=== PATIENT | female | born 1985 ===

== ENCOUNTER 2017-09-04 09:51 | Inpatient (IN) | payer MEDICAID ==
[2017-09-04 10:44] VITALS: BMI 34.8
[2017-09-04] MEDS: Lactated Ringer's 1,000 ML IV SCH ×2 (11:00→12:00)
[2017-09-04] MEDS ORDERED: Lactated Ringer's 1,000 ML IV SCH ×3 (11:15→22:57)
[2017-09-04 11:49] LABS: HEMOGLOBIN 11.4 g/dL (12.0-16.0); MEAN CELL VOLUME 84.3 fl (81.0-99.0); MEAN CORPUSCULAR HGB CONC 33.2 g/dL (33.0-37.0); RBC 4.06 Mil/uL (3.80-5.20); RED CELL DISTRIBUTION WIDTH 18.7 % (11.5-14.5); WHITE BLOOD COUNT 8.2 K/uL (4.8-10.8)
[2017-09-04 11:52] LABS: SQUAMOUS EPITHIAL 3 /hpf (0-5); URINE BACTERIA RARE (<OCC); URINE BILIRUBIN NEGATIVE (NEGATIVE); URINE BLOOD NEGATIVE (NEGATIVE); URINE CALCIUM OXALATE CRYSTALS MOD /hpf (<OCC); URINE CLARITY CLOUDY (Clear); URINE COLOR YELLOW (YELLOW); URINE GLUCOSE (UA) NEG (Normal); URINE LEUKOCYTE ESTERASE NEG Leu/uL (Negative); URINE PROTEIN NEGATIVE (NEGATIVE); URINE UROBILINOGEN 0.2-1.0 mg/dL (0.2-1.0)
[2017-09-04] MEDS ORDERED: SODIUM CHLORIDE 0.9% IVPB ONE (14:38)
[2017-09-04] MEDS ORDERED: CEFOXITIN IVPB ONE (14:38)
[2017-09-04] MEDS ORDERED: Morphine 5 mg/10 ml preservative-free Inj(Duramorph) ONE (16:05)
--- NOTE | 2017-09-04 17:18 | OBADHP ---
Datetime: 09/04/2017 16:54 Admit Comment, IP Provider: 42-year-old 002 at 37 weeks and 2 days gestational age presents to the ED complaining of contractions. Patient denies any vaginal bleeding or leakage of fluids. Hanh t reports good movement. Patient reports that contractions have been increasing in intensity an d frequency. Patient with a history of with last delivery. Current and breech pre sentation. Past medical history none Past surgical history 1 Medication vitamins No known drug allergies Obstetrical history full-term vaginal delivery 1, full-term 1 Social history no tobacco, no drugs, no alcohol Physical exam: Deferred physical exam findings Assessment: 4 at 37 weeks and 2 days gestational age with prior section and breech presentation. Lily duncan was observed at the ED for approximately 2-3 hours. After IVFhydration and observation, contractio ns have increased in frequency and intensity and cervix has become more dilated and effaced. Plan: I recommend patient to have delivery today due to early labor. Discussed with patient risks, benef its, alternatives of surgery and patient consented for repeat . Patient questions answered. Patient consented for procedure Pelvic Type - PN: Adequate Extremities - PN: Normal Abdomen - PN: Normal Back - PN: Normal Breast - PN: Normal Lungs - PN: Normal Heart - PN: Normal Thyroid - PN: Normal Neurologic - PN: Normal HEENT - PN: Normal General - PN: Normal FHR - Baseline A Provider: 120s Membranes, Provider: Intact Contraction Comments Provider: q2-5min Pool Provider: Negative IP Hx Assessment: The History has been Reviewed and is Current Vital Signs Provider: Reviewed; Within Normal Limits IP Chief Complaint: Uterine contractions NICHD Variability Prov Fetus A: Moderate 6-25bpm NICHD Accel Fetus A IP Provider: [id number] FHR Category Provider Fetus A: Category I NICHD Decel Fetus A IP Provider: None Dilatation, Provider: 2-3 Effacement, Provider: 50 Station, Provider: -3 Genitourinary Exam: Normal DTRs - PN: Normal EGA AdmitDate IP: 37.2 IP Adm Impression: Active labor; Intact Membranes IP Admit Plan: Admit to unit; Initiate Section protocol
[2017-09-04] MEDS ORDERED: Oxytocin 30 units/LR 500ML 30 U/500 ML BAG IV ONE (17:20)
[2017-09-04] MEDS ORDERED: Oxycodone/Acetaminophen 5/325 mg Tab PO PRN (19:53)
[2017-09-04] MEDS ORDERED: DiphenhydrAMINE 50 mg/ml Inj IVP PRN ×2 (20:04→22:57)
[2017-09-04] MEDS ORDERED: Simethicone 80 mg Chewtab PO SCH (22:00)
[2017-09-05] MEDS: Simethicone 80 mg Chewtab PO SCH ×4 (04:00→22:19)
[2017-09-05] MEDS: Oxycodone/Acetaminophen 5/325 mg Tab PO PRN ×2 (07:30→14:32)
[2017-09-05 07:38] LABS: HEMOGLOBIN 11.2 g/dL (12.0-16.0); MEAN CELL VOLUME 84.8 fl (81.0-99.0); MEAN CORPUSCULAR HEMOGLOBIN 27.6 pg (27.0-31.0); MEAN CORPUSCULAR HGB CONC 32.5 g/dL (33.0-37.0); RBC 4.04 Mil/uL (3.80-5.20); RED CELL DISTRIBUTION WIDTH 18.3 % (11.5-14.5); WHITE BLOOD COUNT 12.5 K/uL (4.8-10.8)
--- NOTE | 2017-09-05 08:26 | OBDS ---
DELIVERY PERSONNEL Nurse Agronomy Research Manager Certified: kris Delivery Doctor: Kelly Lazo MD Scrub Nurse: Verónica Batista OBT Senior Report Developer: Dianna Valadez RN/Zakia [place] Anesthesiologist: Traffic Routing Engineer: kris Resident: MATERNAL INFORMATION Delivery Anesthesia: Spinal Medications in Delivery: Pitocin 30 units in 500 cc LR Placenta Cultured: No Maternal Complications: None Provider Comments: Repeat low flap transverse section. Patient delivered viable infant with Apgars of 8 and 9 at one and 5 minutes respectively. Infant in mel breech presentation Normal uterus, normal tubes and ovaries bilaterally. Estimated blood loss 800 mL Fluids 1200 mL lactated Ringer's Urine output 7 50 mL of clear urine No complications LABOR SUMMARY EDC: 09/23/2017 00:00 No. Babies in Womb: 1 Attempted: No Labor Anesthesia: None LABOR INFORMATION Reason for Induction: Not Applicable Onset of Labor: 09/04/2017 10:00 Oxytocin: N/A Group B Beta Strep: Negative Antibiotics # of Doses: 1-pre op Antibiotics Time of Last Dose: 181 Steroids Given: None Reason Steroids Not Administered: Not Applicable MEMBRANES Membranes Rupture Method: Spontaneous Rupture of Membranes: 09/04/2017 18:46 Length of Rupture (hrs): 0.02 Amniotic Fluid Color: Clear Amniotic Fluid Amount: Small Amniotic Fluid Odor: Normal STAGES OF LABOR Stage 3 hrs: 0 Stage 3 min: 1 Total Time in Labor hrs: 8 Total Time in Labor min: 48 CSECTION DELIVERY Primary Indication: Repeat Elective Secondary Indication: Breech Presentation CSection Urgency: Emergency Labor: Labor Elective: Nonelective CSection Incision: Lower Uterine Transverse Sterilization Procedure: [place] Uterine Closure: Double-layer closure BABY A INFORMATION Infant Delivery Date/Time: 09/04/2017 18:47 Method of Delivery: Born in Route : No : N/A Forceps: N/A Vacuum Extraction: N/A Shoulder Dystocia : No SHOULDER DYSTOCIA BABY A Infant Delivery Date/Time: 09/04/2017 18:47 PRESENTATION/POSITION BABY A Presentation: Breech Cephalic Presentation: N/A Breech Presentation: Complete PLACENTA INFORMATION BABY A Placenta Delivery Time : 09/04/2017 18:48 Placenta Method of Delivery: Manual Removal Placenta Status: Delivered SCORES BABY A Heart Rate 1 min: >100 bpm Resp Effort 1 min: Slow, Irregular Reflex Irritability 1 min: Cough or Sneeze or Pulls Away Muscle Tone 1 min: Active Motion Color 1 min: Body [place], Extremities Blue Resuscitation Effort 1 min: Tactile Stimulation SCORE 1 MIN: 8 Heart Rate 5 min: >100 bpm Resp Effort 5 min: Good Cry Reflex Irritability 5 min: Cough or Sneeze or Pulls Away Muscle Tone 5 min: Active Motion Color 5 min: Body [place], Extremities Blue SCORE 5 MIN: 9 INFANT INFORMATION BABY A Gestational Age at Delivery: 37.1 Gestational Status: Term Outcome : Liveborn Condition : Stable Sex: Male IDENTIFICATION/MEDS BABY A ID Band Number: [id number] ID Band Location: Left Leg; Left Arm Vitamin K Given : Not Given Erythromycin Given: Not Given WEIGHT/LENGTH BABY A Infant Birthweight (gms): 3590 Weight (lb): 7 Weight (oz): 15 Infant Length Inches: 19.28 Infant Length cms: 49.0 CORD INFORMATION BABY A No. Cord Vessels: 3 Nuchal Cord : N/A True Knot: na Infant Cord pH Baby Arterial: na Cord pH Baby Venous: na Cord Blood Taken: Yes Banking/Donate Info: na Suction: Mouth ASSESSMENT BABY A Infant Complications: None Physical Findings at Delivery: Within Normal Limits Physical Findings Other: had mec stools Infant Respirations: Appears Normal Industrial Paramedic/ALS Called : No Care By: Transferred To: Remains with Mother
--- NOTE | 2017-09-05 12:09 | OP ---
PROCEDURE DATE: 09/04/2017 PREOPERATIVE DIAGNOSES: Active labor, breech presentation, prior section. POSTOPERATIVE DIAGNOSES: Active labor, breech presentation, prior section.. OPERATION PERFORMED: Repeat low flap transverse cesarian section via Pfannenstiel incision, bilateral tubal ligation in [place] fashion. SURGEON: Shahram Lazo MD CHIEF FUNDRAISING OFFICER: Dr. Alves TYPE OF ANESTHESIA: Spinal. ANESTHESIA ADMINISTERED BY: Ki Charles MD OPERATIVE FINDINGS: Viable infant with Apgars of 8 and 9 at 1 and 5 minutes respectively. Infant in mel breech presentation, normal uterus, normal tubes and ovaries bilaterally. ESTIMATED BLOOD LOSS: 800 mL. FLUIDS: 1200 mL lactated Ringer's. URINE OUTPUT: 750 mL of clear urine at the end of procedure. COMPLICATIONS: None. DESCRIPTION OF PROCEDURE: The patient was taken to the operating room where spinal anesthesia was found to be adequate. The patient was prepped and draped in the normal sterile fashion in the dorsal supine position with a leftward tilt. A Pfannenstiel skin incision was made with a scalpel. This was carried down through to the underlying layer of fascia with the scalpel. Midline defect was made in the fascial layer with the scalpel. The fascial incision was then extended bilaterally sharply with curved Brice scissors. The fascial layer was from the underlying rectus muscles both bluntly and sharply with curved Brice scissors. The rectus muscles were at the midline. The peritoneum was then identified, tented up with Paola clamps x2, and entered sharply with Metzenbaum scissors. This peritoneal incision was then extended superiorly and inferiorly with good visualization of the urinary bladder. A bladder blade was inserted into the abdomen. The vesicouterine peritoneum was then identified, tented up with upward with Paola clamps x2, and entered sharply with Metzenbaum scissors. This peritoneal incision was then extended bilaterally with Metzenbaum scissors. The bladder flap was created digitally. The [place] retractors were placed over the urinary bladder. The uterus was incised with a scalpel. The uterine incision was extended bilaterally bluntly. The breech of the was delivered without complication. The lower extremities were flexed and delivered atraumatically. The upper extremities were flexed across the anterior surface of the and delivered atraumatically. The head was flexed and delivered without complication. The nose and mouth were suctioned with bulb suction. The cord was clamped and cut. The was handed off to waiting pediatricians. Cord blood was collected. The placenta was removed manually. The uterus was cleared of all clots and debris. The uterine incision was repaired with 0 Vicryl in a running, locked fashion. Second layer of the same suture was used to imbricate the first and to obtain excellent hemostasis. Reinspection of the uterine incision proved excellent hemostasis. Attention was then turned to the fallopian tubes. The fallopian tubes were grasped with Ismael bilaterally, suture ligated in a Olive fashion with 2-0 Chromic bilaterally, transected with Metzenbaum scissors bilaterally, proximally 2 to 3 cm portion of tube removed bilaterally, and surgical pedicle electrocauterized for hemostasis. Reinspection of fallopian tube pedicles bilaterally proved hemostasis. The abdomen and pelvis were irrigated with copious amounts of warm normal saline. Reinspection of the uterine incision and fallopian tube pedicles found to be hemostatic. All instruments were removed from the patient. The peritoneal layer was closed with a running stitch of 2-0 chromic. The rectus muscles were reapproximated with a running stitch of 2-0 chromic. The fascial layer was closed with a running stitch of 0 Vicryl. Subcutaneous tissue was closed with a running stitch of 3-0 plain. The skin was closed with a subcutaneous stitch of 3-0 Vicryl. There were no complications. The patient tolerated the procedure well. The patient was given 2 grams of Ancef just prior to the beginning of the procedure. All sponge, lap count, and needle counts were correct x2. There were no complications. The patient was taken to the recovery room in awake and stable condition. Shahram Lazo MD
--- NOTE | 2017-09-06 00:57 | OBPPN ---
Datetime: 09/05/2017 06:11 PP Pain Prov: Within normal limits PP Nausea Prov: Denies PP Flatus Prov: No PP BM Prov: No PP Heart Prov: Normal PP Lungs Prov: Normal PP Abdomen/Uterus Prov: Normal PP Lochia Prov: Normal PP CVA Tenderness Prov: Normal PP Extremities Prov: Normal PP C/S Incision Prov: Normal PP Impression Prov: Normal progression PP Plan Prov: Continue present management PP Progress Note Prov: POD 1 32 y/o now seen and examined at bedside on POD 1. Pt had emergency repeat w/ BT L on 09/04/17 at 18:47 due to breach presentation. Pt reports pain at the site and pain is c ontrolled with pain medications. Pt is tolerating liquid diet. Pt denies passing gas per rectum and no BM yet. Has Todd in place Denies chest pain, dyspnea, headache, dizziness or calf pain. Mother does not desire circumcision for the baby. Physical Exam: General: A_O, resting comfortably in bed, NAD HEENT: white sclera, pink conjunctiva, oral mucosa moist. Lungs: CTA B/L, no wheezing, rhonchi or rales CVS: RRR, normal S1, S2 ABD: ND, +BS; Incision: covered with dressing. Dressing looks clean, dry and intact. EXT: no edema, negative Isidro's sign Neuro/psych: AAOX3 Assessment: 32 yo now s/p emergency repeat due to breach presentation doing well on POD 1 Plan: Advance to regular diet as tolerated. Discontinue Todd SCD for DVT prophylaxis Percocet and Ibuprofen for pain management Zofran prn for nausea/vomiting Colace for constipation consultation Encourage and ambulation. Sultan Watts, pgy-1 Case d/w on-call OB Hospitalist OB Hospitalist on-call. In rounds at 20:00pm, I saw and eamined this patinet. Agree with note. VERONICA Vital Signs Provider PP: Reviewed
[2017-09-06] MEDS: Simethicone 80 mg Chewtab PO SCH ×4 (05:52→23:32)
[2017-09-06] MEDS: Oxycodone/Acetaminophen 5/325 mg Tab PO PRN (08:46)
[2017-09-07] MEDS: Simethicone 80 mg Chewtab PO SCH ×2 (05:04→09:07)
--- NOTE | 2017-09-07 08:17 | OBPPN ---
Datetime: 09/07/2017 07:37 PP Pain Prov: Within normal limits PP Nausea Prov: Denies PP Flatus Prov: Yes PP BM Prov: Yes PP Breasts Prov: Normal PP Heart Prov: Normal PP Lungs Prov: Normal PP Abdomen/Uterus Prov: Normal PP Lochia Prov: Normal PP Vulva/Perineum Prov: Normal PP CVA Tenderness Prov: Normal PP Extremities Prov: Normal PP C/S Incision Prov: Normal PP Progress Prov: Normal PP Impression Prov: Normal progression PP Plan Prov: Continue present management; Discharge PP Progress Note Prov: S: 32 YO POD3, s/p emergency C-sec with BTL. Pt is seen and examined thi s AM, FOB by bedside. No acute overnight events. Pt is endorsing mild pelvic pain around the incision site/abdominal pain but pain is well controlled with pain meds. Pt is ambulating around the room wit hout any difficulties. Bleeding is minimal. Tolerating PO diet. + BM/Gas. Additionally, this AM pt is endorsing dysuria. Denies chest pain, dyspnea, n/v, fever/chills, diarrhea, nausea/vomiting, and luis f pain. O: VS: wnl in the last 24 hrs with Tmax of 98.9 GEN: Awake, alert and baby by bedside. NAD HEENT: EOMI, moist mucosa. LUNGS: CTA B/L, no wheezing, rhonci, or rales CVS: RRR, S1,S2 no murmurs ABD: ND, +BS, soft abdomen, firm fundus @ umbilical level. Incision: Clean, dry and intact. No induration, redness or fluctuation. No dehiscence is noted. S kelsy-strips intact EXT: 1+ pitting edema mid-lugo, neg calf tenderness NEURO/PSYCHI: AAOx3, no grossly focal deficit, preserved affect and mood. Assessment/Plan: 32 YO , gave to a baby boy s/p emergency (due to breech prese ntation) on 09/04/17. Pt remains afebrile, tolerating pain with medication, good PO intake and urinatin g without any difficulties. Doing well on POD#3. -C/w regular diet as tolerated. -OOB with caution SCDs and early ambulation for DVT prophylaxis -C/w Percocet 5/325 mg and Ibuprofen 600 mg for pain prn -C/w Colace 100mg PO BID -Encourage and ambulating. -will do UA this AM for dysuria and will d/c after results are appreciated -will d/c pt home today with follow up in clinic with Dr. Galeano on 09/18 and 10/09 for wound care a nd PP care. Attending Note: Pt was seen and d/w resident and I agree with the above. IP PP Procedures: None Vital Signs Provider PP: Reviewed; Within Normal Limits
--- NOTE | 2017-09-07 08:19 | OBDCSUM ---
Datetime: 09/07/2017 07:44 Discharged to, Provider: Home Follow up at, Provider: Dr. Galeano Disch Instr Activity: Normal activity; May be up to bathroom; May be up for meals; May Shower Disch Instr Diet: Regular Discharge Instructions, Provider: Routine instructions given Discharge Diagnosis, Provider: Term Delivered Discharge Time: 09/07/2017 07:45 Follow up in weeks, Provider: 2 weeks Contraception discussed, Prov: Yes Disch Activity Restrictions: No exercising; No lifting; Minimize stair-climbing; No sexual activity; Nothing in vagina - [place], tampons, douche Discharge Comment, Provider: 32 YO , gave to a baby boy s/p emergency (due to br eech presentation) and BTL on 09/04/17 @ 18:47. Male was born at 3590 g, with scores of 8/ 9. No complications during the post period, incision is intact, healing well, clean and dry. P t is ambulating and tolerating diet. DISCHARGE INSTRUCTIONS: 1. Encourage 2. PNV 1 tab po q/day 3. Ibuprofen 600 mg 1 tab po prn q6 if moderate pain . Percocet 5/325 mg 1tab po prn q6h if severe pain 4. Ambulatory with caution, nothing per vagina, no heavy lifting, avoid stairs, if excessive bleed ing or fever please come back to the ED 5. Please follow up in Clinic with Dr. Galeano for WC on 09/18 @ 10:15 and for PP follow up on 10/09 @ 10:00. Please see a MD for baby in 3-4 days after discharge. Contraception after Delivery: Undecided
[2017-09-07 10:17] LABS: SQUAMOUS EPITHIAL 5 /hpf (0-5); URINE BILIRUBIN NEGATIVE (NEGATIVE); URINE BLOOD LARGE (NEGATIVE); URINE CLARITY SLIGHTY-CLOUDY (Clear); URINE COLOR YELLOW (YELLOW); URINE GLUCOSE (UA) NEG (Normal); URINE LEUKOCYTE ESTERASE NEG Leu/uL (Negative); URINE PROTEIN NEGATIVE (NEGATIVE); URINE UROBILINOGEN 0.2-1.0 mg/dL (0.2-1.0)
[2017-09-07 18:01] VITALS: BP 133/65; PULSE 78; RESP 20; TEMP 99; O2SAT 100
--- NOTE | 2017-09-08 10:16 | OBPPN ---
Datetime: 09/06/2017 06:22 PP Pain Prov: Within normal limits PP Nausea Prov: Denies PP Flatus Prov: Yes PP BM Prov: No PP Heart Prov: Normal PP Lungs Prov: Normal PP Abdomen/Uterus Prov: Normal PP CVA Tenderness Prov: Normal PP Extremities Prov: Normal PP C/S Incision Prov: Normal PP Impression Prov: Normal progression PP Plan Prov: Continue present management PP Progress Note Prov: POD 2 32 y/o now seen and examined at bedside on POD 2. Pt had emergency repeat w/ BT L on 09/04/17 at 18:47 due to breach presentation. Pt reports pain at the site and pain is c ontrolled with pain medications. Pt is tolerating po diet well. Pt reports passing gas per rectum bu t no BM yet. Voiding w/o difficulty. Denies chest pain, dyspnea, headache, dizziness or calf pain. M other does not desire circumcision for the baby. Physical Exam: General: A_O, resting comfortably in bed, NAD HEENT: oral mucosa moist. Lungs: CTA B/L, no wheezing, rhonchi or rales CVS: RRR, normal S1, S2 ABD: ND, +BS; Incision: Incision clean, dry and intact. No induration, redness or fluctuation. Steri strips inta ct, no dehiscence EXT: no edema, negative Isidro's sign Neuro/psych: AAOX3 Assessment: 32 yo now s/p emergency repeat due to breach presentation doing well on POD 2 Plan: Continue regular diet as tolerated. SCD for DVT prophylaxis Percocet and Ibuprofen for pain management Colace for constipation consultation Encourage and ambulation. Sultan Watts, pgy-1 Case d/w on-call OB Hospitalist . Attending Note: Pt was seen and examined and I agree with the above. Gisela. Vital Signs Provider PP: Reviewed
== END 2017-09-07 12:10 | disposition home or self-care (01) | DRG 371 ==
LOC: H.EROB2 09:51 → H.L&D 14:41 → H.OB/GYN 22:47
PROVIDERS: ADMIT Obstetrics & Gynecology; ATTEND Obstetrics & Gynecology
PROC: 10D00Z1 Extraction of Products of Conception, Low, Open Approach (ICD-10-PCS; principal; 2017-09-04)
PROC: 0UB70ZZ Excision of Bilateral Fallopian Tubes, Open Approach (ICD-10-PCS; 2017-09-04)
PROC: 4A1HXCZ Monitoring of Products of Conception, Cardiac Rate, External Approach (ICD-10-PCS; 2017-09-04)
DX: O34.211 Maternal care for low transverse scar from previous cesarean delivery (principal); O32.1XX0 Maternal care for breech presentation, not applicable or unspecified; Z37.0 Single live birth; Z3A.37 37 weeks gestation of pregnancy; Z30.2 Encounter for sterilization

== ENCOUNTER 2017-09-24 00:02 | Emergency (ER) | payer MEDICAID ==
[2017-09-24 00:03] VITALS: BMI 34.8
[2017-09-24 00:13] VITALS: TEMP 98
[2017-09-24] MEDS ORDERED: Sodium Chloride 0.9% 1,000 ML IV STA (00:36)
[2017-09-24 01:22] VITALS: BP 134/76; PULSE 58; RESP 17; O2SAT 98
[2017-09-24 01:28] LABS: BLOOD UREA NITROGEN 16 mg/dl (7-17); CALCIUM 9.3 mg/dL (8.4-10.2); GFR AFRICAN-AMERICAN > 60; GFR NON-AFRICAN AMERICAN > 60
[2017-09-24 01:38] LABS: PARTIAL THROMBOPLASTIN TIME 29.5 Seconds (25.6-37.1); PROTHROMBIN TIME 11.8 Seconds (9.8-13.1)
--- NOTE | 2017-09-24 01:38 | ED PDOC ---
Syncope/Near Syncope/Dizziness Time Seen by Provider: 09/24/17 00:15 Chief Complaint (Nursing): Syncope Chief Complaint (Provider): Syncope History Per: Patient History/Exam Limitations: no limitations Onset/Duration Of Symptoms: Sudden Onset (@2230) Current Symptoms Are (Timing): Still Present Additional Complaint(s): 32 y/o female who is 2 weeks post delivered via for breech delivery, who is presenting today with dizziness and syncope. Patient states prior to arrival she felt a room spinning sensation and suffered LOC for approximately 1 minute. States her says she had jerky movements of her arms and legs for less than 1 minute. Denies tongue biting, loss of urine, or loss of feces. Patient states she does not have a headache, just dizziness. Denies SOB and chest pain. PMD: Lino Byrd Past Medical History Reviewed: Historical Data, Nursing Documentation, Vital Signs Vital Signs: Last Vital Signs Temp 98 F 09/24/17 00:10 Pulse 58 L 09/24/17 01:20 Resp 17 09/24/17 01:20 BP 134/76 09/24/17 01:20 Pulse Ox 98 09/24/17 01:20 - Medical History PMH: No Chronic Diseases Denies: Depression, Diabetes, HTN - Surgical History Surgical History: - Family History Family History: States: Unknown Family Hx - Social History Current smoker - smoking cessation education provided: No Alcohol: None Drugs: Denies - Home Medications Home Medications: Ambulatory Orders Medication Instructions Recorded Ferrous Sulfate 1 tab PO DAILY 09/04/17 Pnv with Ca,No.72/Iron/FA [Pnv 1 tab PO DAILY 09/04/17 Plus Multivit Tab] Docusate [Colace] 100 mg PO BID #30 cap 09/07/17 Ibuprofen [Motrin Tab] 600 mg PO Q4H PRN #30 tab 09/07/17 oxyCODONE/Acetaminophen [Percocet 1 tab PO Q4 PRN #15 tab 09/07/17 5/325 mg Tab] Meclizine HCl [Bonine] 50 mg PO BID PRN #20 tab.chew 09/24/17 - Allergies Allergies/Adverse Reactions: Allergies Allergy/AdvReac Type Severity Reaction Status Date / Time ranitidine [From Zantac] AdvReac Mild RASH Verified 09/04/17 10:44 Review of Systems ROS Statement: Except As Marked, All Systems Reviewed And Found Negative Cardiovascular: Negative for: Chest Pain Respiratory: Negative for: Shortness of Breath Genitourinary Female: Negative for: Incontinence Neurological: Positive for: Dizziness. Negative for: Headache Physical Exam - Reviewed Nursing Documentation Reviewed: Yes Vital Signs Reviewed: Yes - Physical Exam Appears: Positive for: Non-toxic, No Acute Distress Head Exam: Positive for: ATRAUMATIC, NORMAL INSPECTION, NORMOCEPHALIC Skin: Positive for: Normal Color, Warm, Dry. Negative for: Rash Eye Exam: Positive for: EOMI, Normal appearance, PERRL Neck: Positive for: Normal, Painless ROM, Supple Cardiovascular/Chest: Positive for: Regular Rate, Rhythm. Negative for: Murmur Respiratory: Positive for: Normal Breath Sounds. Negative for: Respiratory Distress Gastrointestinal/Abdominal: Positive for: Normal Exam, Bowel Sounds, Soft. Negative for: Tenderness Back: Positive for: Normal Inspection. Negative for: L CVA Tenderness, R CVA Tenderness, Vertebral Tenderness Extremity: Positive for: Normal ROM. Negative for: Pedal Edema, Deformity Neurologic/Psych: Positive for: Alert, equipment operator II-XII (intact), Oriented (x3), Gait (steady). Negative for: Motor/Sensory Deficits, Cerebellar Tests, Aphasia, Facial Droop - Laboratory Results Result Diagrams: 09/24/17 01:10 09/24/17 01:10 - ECG O2 Sat by Pulse Oximetry: 98 (RA) Pulse Ox Interpretation: Normal Medical Decision Making Medical Decision Making: Time: 00:35 Initial Impression and plan: 2 weeks post presenting with dizziness, syncope, and likely tonic-clonic features. Unlikely seizure. Patient recheck BP is WNL. Not concerned for preeclampsia/eclampsia. Will check blood work and CT and reevaluate. Time: 02:24 EXAM: CT Head Without Intravenous Contrast CLINICAL HISTORY: 32 years old, female; Signs and symptoms; Dizziness; Additional info: Dizziness , syncope TECHNIQUE: Axial computed tomography images of the head/brain without intravenous contrast. All CT scans at this facility use one or more dose reduction techniques, viz.: automated exposure control; ma/kV adjustment per patient size (including targeted exams where dose is matched to indication; i.e. head); or iterative reconstruction technique. Coronal and sagittal reformatted images were created and reviewed. COMPARISON: No relevant prior studies available. FINDINGS: Brain: No intracranial hemorrhage. No mass. No definite edema. Ventricles: No hydrocephalus. Bones/joints: No acute fracture. Soft tissues: Unremarkable. Sinuses: Mild mucosal thickening of left frontal, left ethmoid sinuses. Mastoid air cells: No mastoid effusion. Orbits: Unremarkable as visualized. IMPRESSION: 1. No definite acute intracranial abnormality. 2. Incidental/non-acute findings are described above. Time: 02:50 Upon reevaluation, patient is feeling much better, states dizziness has resolved. VSS. Patient is medically stable and will be discharged home. Patient instructed to follow up with PCP. Return precautions given. Advised patient to f/u w/ PMD in 2 -3 days, referral to clinic given. Scribe Attestation: Documented by Des Velasquez, acting as a scribe for Fabiano Haywood MD. Provider Scribe Attestation: All medical record entries made by the Scribe were at my direction and personally dictated by me. I have reviewed the chart and agree that the record accurately reflects my personal performance of the history, physical exam, medical decision making, and the department course for this patient. I have also personally directed, reviewed, and agree with the discharge instructions and disposition. Disposition - Clinical Impression Clinical Impression: Dizziness, Syncope - Patient ED Disposition Is Patient to be Admitted: No Counseled Patient/Family Regarding: Studies Performed, Diagnosis, Need For Followup - Disposition Referrals: [facility] [Outside] Disposition: Routine/Home Disposition Time: 02:50 Condition: IMPROVED Prescriptions: Meclizine HCl [Bonine] 50 mg PO BID PRN #20 tab.chew PRN Reason: Dizziness Instructions: Vertigo (a Type of Dizziness), Syncope (Fainting) Forms: [facility] (Gabonese) Print Language: SAMI
[2017-09-24 01:50] LABS: BASO % 0.4 % (0.0-2.0); EOS # 0.3 K/uL (0.0-0.7); EOS % 3.4 % (0.0-4.0); HEMOGLOBIN 12.1 g/dL (12.0-16.0); LYMPH % 21.9 % (20.0-40.0); MEAN CELL VOLUME 84.7 fl (81.0-99.0); MEAN CORPUSCULAR HEMOGLOBIN 28.2 pg (27.0-31.0); MEAN CORPUSCULAR HGB CONC 33.3 g/dL (33.0-37.0); MEAN PLATELET VOLUME 9.9 fl (7.2-11.7); MONO # 0.8 K/uL (0.0-0.8); MONO % 8.6 % (0.0-10.0); NEUT % 65.7 % (50.0-75.0); NRBC % 0.1 % (0.0-0.0); RBC 4.27 Mil/uL (3.80-5.20); RED CELL DISTRIBUTION WIDTH 17.1 % (11.5-14.5); WHITE BLOOD COUNT 9.1 K/uL (4.8-10.8)
--- NOTE | 2017-09-24 02:24 | CT ---
EXAM: CT Head Without Intravenous Contrast CLINICAL HISTORY: 32 years old, female; Signs and symptoms; Dizziness; Additional info: Dizziness, syncope TECHNIQUE: Axial computed tomography images of the head/brain without intravenous contrast. All CT scans at this facility use one or more dose reduction techniques, viz.: automated exposure control; ma/kV adjustment per patient size (including targeted exams where dose is matched to indication; i.e. head); or iterative reconstruction technique. Coronal and sagittal reformatted images were created and reviewed. COMPARISON: No relevant prior studies available. FINDINGS: Brain: No intracranial hemorrhage. No mass. No definite edema. Ventricles: No hydrocephalus. Bones/joints: No acute fracture. Soft tissues: Unremarkable. Sinuses: Mild mucosal thickening of left frontal, left ethmoid sinuses. Mastoid air cells: No mastoid effusion. Orbits: Unremarkable as visualized. IMPRESSION: 1. No definite acute intracranial abnormality. 2. Incidental/non-acute findings are described above.
--- NOTE | 2017-09-24 19:33 | CARD ---
APPROVED REPORT EKG Measurement Heart [id number] <Conclusion> Sinus bradycardia Otherwise normal ECG
== END 2017-09-24 03:00 | disposition home or self-care (01) ==
LOC: H.ER 00:02
DX: R55 Syncope and collapse (principal); R42 Dizziness and giddiness
CPT/HCPCS: 70450; 80048; 84484; 85025; 85378; 85610; 85730; 93005; 99285; J7040